=== PATIENT | female | born 1970 | race Caucasian/White ===

== ENCOUNTER 2019-07-17 12:31 | Outpatient (CLI) | payer MEDICARE, BC | END 2019-07-17 23:59 | disposition home or self-care (01) | LOC: CARD 12:31 | PROVIDERS: ATTEND Specialist | DX: G40.101 Localization-related (focal) (partial) symptomatic epilepsy and epileptic syndromes with simple partial seizures, not intractable, with status epilepticus (principal); I60.9 Nontraumatic subarachnoid hemorrhage, unspecified | CPT/HCPCS: 95819 ==